=== PATIENT | male | born 1955 | race Caucasian/White ===

== ENCOUNTER 2023-10-10 11:03 | Emergency (ER) | payer MEDICARE, MEDICAID, SELFPAY ==
[2023-10-10] VITALS (29 sets, daily range): BP systolic 134–167; BP diastolic 74–92; PULSE 57–82; RESP 10–30; TEMP 36.9; O2SAT 96–100
--- NOTE | ~2023-10-10 | XR_ITS ---
Clinical Indication: Chest pain AP and lateral views of the chest: Comparison: None Findings: The lungs are clear, without evidence of focal consolidation or pleural effusion. Cardiome diastinal silhouette is within normal limits. Bones and soft tissues are unremarkable. Impression: Normal chest. Reviewed, dictated and finalized at location . T DEPUTY Impression: Normal chest.
--- NOTE | ~2023-10-10 | CT_ITS ---
EXAMINATION: CTA chest PE protocol DATE: 10/10/2023 15:34 INDICATION: Pleuritic chest pain. TECHNIQUE: Computed tomography angiography (CTA) of the chest was performed with 100 mL Omnipaque-350 intravenous contrast timed to evaluate the pulmonary arteries. Coronal maximum intensity projection 3D-reconstructions were created by the technologist. Automated exposure control and iterative reconst ruction technique were employed. The dose-length product was 444.39 mGy-cm. COMPARISON: Chest 2 views 10/10/2023 FINDINGS: There is mild scarring at the lung apices. There is a 4 mm nodule in right middle lobe, lik fab benign. There is mild atelectasis in the lungs. Calcified left left lung nodules and calcified le ft hilar and mediastinal lymph nodes are consistent with old granulomatous disease. No pleural effusi on. The heart size is normal. No pericardial effusion. Calcifications in the liver and spleen are con sistent with old granulomatous disease. There is wall thickening in the distal esophagus, consistent with esophagitis. There are bridging endplate osteophytes at multiple levels in the spine, consistent with diffuse idiopathic skeletal hyperostosis (DISH). IMPRESSION: 1. No pulmonary embolus. 2. Wall thickening of the distal esophagus, consistent with esophagitis. Reviewed, dictated and finalized at location E. C INTERN
--- NOTE | 2023-10-10 11:16 | ECG_ITS ---
Measurements Intervals [place] Rate: 69 P: 70 MI: 185 QRS: 27 QRSD: 110 T: 50 QT: 429 QTc: 462 Interpretive Statements SINUS RHYTHM BASELINE ARTIFACT POSSIBLE LEFT ATRIAL ENLARGEMENT [-0.1mV P WAVE IN V1/V2] NONSPECIFIC T-WAVE ABNORMALITY BORDERLINE ECG NO PREVIOUS ECG AVAILABLE FOR COMPARISON Electronically Signed On 10-10-2023 16:00:09 BUTTON SAWYER by Jose Felix M.D.
[2023-10-10 11:29] LABS: Basophils Percent Auto 0.4 % (0.2-1.2); Eosinophils Absolute Auto 0.2 K/mm3 (0-0.3); Eosinophils Percent Auto 1.5 % (0-4.4); Hematocrit 44.9 % (42.0-52.0); Hemoglobin 15.1 g/dL (14.0-18.0); Immature Granulocyte Absolute 0.04 K/mm3 (0.00-0.031); Immature Granulocyte Percent A 0.4 % (0-0.5); Lymphocytes Absolute Auto 3.63 K/mm3 (0.9-3.2); Lymphocytes Percent Auto 33.6 % (18.3-44.2); Mean Corpuscular HGB Conc 33.6 g/dl (32-36); Mean Corpuscular Hemoglobin 31.3 pg (26-34); Mean Corpuscular Volume 93.2 fl (80-100); Mean Platelet Volume 9.8 fl (7.4-10.4); Monocytes Percent Auto 8.9 % (2.6-8.5); Neutrophils Percent Auto 55.2 % (45.5-73.1); Platelet Count Result 150 k/mm3 (150-375); Red Blood Count 4.82 M/mm3 (4.6-6.20); Red Cell Distribution Width 12.4 % (11.5-14.5); White Blood Count 10.8 K/mm3 (4.5-10.0)
[2023-10-10 11:41] LABS: Alanine Aminotransferase 17 U/L (6-50); Albumin Level 4.6 g/dL (3.5-5.1); Alkaline Phosphatase 60 U/L (38-126); Anion Gap 9 mmol/L (8-16); Aspartate Amino Transferase 27 U/L (17-59); Bilirubin,Total 1.1 mg/dL (0.2-1.3); Blood Urea Nitrogen 14 mg/dL (9-20); Calcium 9.4 mg/dL (8.4-10.2); Carbon Dioxide 26 mmol/L (22-30); Chloride 105 mmol/L (98-107); Estimated CRCL calculation 52 ml/min; Estimated Glomerular Filt Rate 60; Glucose 183 mg/dL (65-110); Lipase 159 U/L (23-300); Potassium 3.7 mmol/L (3.4-5.0); Sodium 140 mmol/L (137-145)
[2023-10-10 11:53] LABS: Troponin I < 0.012 ng/mL (0.000-0.034)
[2023-10-10 12:36] LABS: INR 0.9; Prothrombin Time 12.9 Seconds (11.1-14.7)
[2023-10-10 12:37] LABS: Partial Thromboplastin Time 27.4 SECONDS (22.3-36.8)
[2023-10-10 12:41] LABS: D Dimer 0.53 ug/mL (<0.48)
--- NOTE | 2023-10-10 13:10 | ED.CHESTPAIN ---
HPI - Chest Pain General Chief Complaint: Chest Pain Stated Complaint: CP Time Seen by Provider: 10/10/23 11:19 Source: patient Mode of arrival: EMS Limitations: no limitations History of Present Illness HPI narrative: 68 yo with Hx PR (2012), open heart surgery/CABG (2012), diabetes and HIV who presents with left sided chest pain occuring since 08:30. He is s/p 324mg aspirin and 1 Nitro from EMS. Pain is sharp, radiating to left neck and left arm. Described as pleuritic. No lower extremity edema. The pain has improved. It awoke him from sleep. Not on insulin or diabetic medication; controlled with diet and exercise and has had near normal HA1C as a result of lifestyle modifications. Recnetly moved here from [facility] months ago. Established with PCP Kirby yesterday but has not yet established with a naturopath. Compliant with his 2 ARVs though can't recall name. No cough, fevers. Related Data Home Medications Medication Instructions Recorded Confirmed aspirin 81 mg tablet,delayed 81 mg PO DAILY 10/09/23 10/09/23 release (Adult Aspirin Regimen) dolutegravir 50 mg tablet (Tivicay) 50 mg PO .COMPLEX 10/09/23 10/09/23 empagliflozin 10 mg tablet 10 mg PO DAILY 10/09/23 10/09/23 (Jardiance) emtricitabine 200 mg-tenofovir 1 tablet PO DAILY 10/09/23 10/09/23 alafenamide fumarate 25 mg tablet (Descovy) ezetimibe 10 mg tablet 10 mg PO DAILY 10/09/23 10/09/23 famotidine 20 mg tablet 20 mg PO QHS 10/09/23 10/09/23 isosorbide mononitrate 60 mg 60 mg PO DAILY 10/09/23 10/09/23 tablet,extended release 24 hr levocetirizine 5 mg tablet 5 mg PO QPM 10/09/23 10/09/23 lisinopril 20 mg tablet 20 mg PO DAILY 10/09/23 10/09/23 mecobalamin (vitamin B12) 1,000 1,000 mcg PO DAILY 10/09/23 10/09/23 mcg chewable tablet metoprolol tartrate 25 mg tablet 25 mg PO BID 10/09/23 10/09/23 multivitamin (Daily-Beverly tablet) 1 tablet PO DAILY 10/09/23 10/09/23 oxycodone 7.5 mg tablet,oral ONLY 7.5 mg PO TID PRN 10/09/23 10/09/23 (not for feeding tubes) rosuvastatin 40 mg tablet 40 mg PO DAILY 10/09/23 10/09/23 venlafaxine 150 mg 150 mg PO DAILY 10/09/23 10/09/23 capsule,extended release 24 hr Allergies Allergy/AdvReac Type Severity Reaction Status Date / Time Penicillins Allergy Intermediate Hives Verified 10/10/23 11:09 strawberry Allergy Intermediate Hives Verified 10/10/23 11:09 Sulfa (Sulfonamide Allergy Intermediate Hives Verified 10/10/23 11:09 Antibiotics) [facility] Past Medical History Medical History Acid reflux disease with ulcer Anxiety CHF (congestive heart failure) Chronic low back pain with sciatica Coronary artery disease Diabetes type 2, controlled Esophageal dilatation GERD (gastroesophageal reflux disease) Heart attack HIV (human immunodeficiency virus infection) HLD (hyperlipidemia) Major depressive disorder in partial remission Surgical History Surgical History (Updated 10/12/23 @ 06:06 by Mily Genao MD) History 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 (unable to do all 3 ) History of prostate surgery Hx of cataract removal with insertion of prosthetic lens Family History Family History (Updated 10/09/23 @ 09:26 by Karma Richter CMA) Father Alcoholism Breast cancer Diabetes mellitus Hypertension Depression Anxiety Heart problem Mother Diabetes mellitus Hypertension Cerebrovascular accident Sibling Breast cancer Diabetes mellitus Hypertension Depression Anxiety Heart problem Cerebrovascular accident Social History Social History (Updated 10/09/23 @ 09:28 by Karma Richter CMA) Smoking status: Never smoker Second hand tobacco smoke exposure: No Alcohol intake: never Substance use: never Do You Feel Safe in your Home?: Yes Lack of Transportation: No Lack of Food: Sometimes True Current Housing: I Have Housing Concerned About Future Housing: No Di
[2023-10-10] MEDS: HYDROcodone/acetaminophen (*CRX) 5-325 MG TABLET 1 TAB PO (14:02)
--- NOTE | 2023-10-10 14:16 | ECG_ITS ---
Measurements Intervals [place] Rate: 55 P: 31 [place]: 193 QRS: 18 QRSD: 108 T: 31 QT: 451 QTc: 435 Interpretive Statements SINUS BRADYCARDIA NONSPECIFIC T-WAVE ABNORMALITY BORDERLINE ECG COMPARED TO ECG 10/10/2023 11:08:29 HEART RATE HAS DECREASED Electronically Signed On 10-10-2023 16:06:23 GASTROENTEROLOGIST by Jose Felix M.D.
[2023-10-10 14:42] LABS: Troponin I < 0.012 ng/mL (0.000-0.034)
== END 2023-10-10 16:38 | disposition home or self-care (01) ==
PROVIDERS: Emergency Provider Student in an Organized Health Care Education/Training Program; PCP Internal Medicine
DX: K20.90 Esophagitis, unspecified without bleeding (principal); R07.89 Other chest pain; I25.2 Old myocardial infarction; Z21 Asymptomatic human immunodeficiency virus [HIV] infection status; I50.9 Heart failure, unspecified; I25.10 Atherosclerotic heart disease of native coronary artery without angina pectoris; E11.9 Type 2 diabetes mellitus without complications; E78.5 Hyperlipidemia, unspecified; K21.9 Gastro-esophageal reflux disease without esophagitis; Z95.1 Presence of aortocoronary bypass graft; Z98.49 Cataract extraction status, unspecified eye; Z96.1 Presence of intraocular lens; Z79.84 Long term (current) use of oral hypoglycemic drugs; Z79.82 Long term (current) use of aspirin; Z79.899 Other long term (current) drug therapy; R94.31 Abnormal electrocardiogram [ECG] [EKG]; R00.1 Bradycardia, unspecified
CPT/HCPCS: 36415; 71046; 71275; 80053; 83690; 84484; 85025; 85380; 85610; 85730; 93005; 99284; A9270; Q9967

== ENCOUNTER 2023-11-15 12:30 | Outpatient (RCR) | payer MEDICARE, MEDICAID, SELFPAY ==
--- NOTE | 2023-10-30 10:32 | OPREHPOC ---
Outpatient Therapy Plan of Care This is a Multidisciplinary Plan of Care that may contain components documented by all disciplines (PT, OT, and ST.) PT Problem 1 PT Problem #1 Knowledge Deficit PT Goal 1 Goal 1* indep with HEP 2* correct body mechanics and positioning with exercises PT Problem 2 PT Problem #2 Pain PT Goal 1 Goal 1* pain rating at worst of 6/10 2* pt report with sleeping, awaken due to pain 1x/ night 3* self assessment Oswestry score of 44% limitation in activity level PT Problem 3 PT Problem #3 Impaired Flexibility PT Goal 1 Goal improve flexibility over hip musculature, to decrease pull on spine and hips: hamstring length with supine SLR 1* R 50' 2* L 50' no pain reported with motion x2 reps: 3* supine L piriformis stretch 4* supine trunk rotation with LE to R PT Problem 4 PT Problem #4 Impaired Strength PT Goal 1 Goal improve strength and mobility skills, to increase activity tolerance: 1* 5 reps sit/stand time of 19 seconds 2* 2 minute walk test 300' 3* pt perform 20 reps of R and L LE mat exercises
--- NOTE | 2023-10-30 10:32 | PTOPEVAL1 ---
Assessment and note entered by Debbie Begum, PT Evaluation Information Assessment Status Evaluation Diagnosis lumbar pain, other chronic pain Onset several years Subjective Information chronic issues with pain; go to pain management, last back injection about 6 months ago; had PT in the past about 3 yr ago, helped some after received injections; have not had any falls in the past 6 months, but have had the feeling like going to fall; in the morning, have problems with dizziness and with sit to stand up--have to stay still and get bearings before moving; ACTIVITY: have help with home cleaning, home chores, make bed- helper 2x/wk for few hours indep with bathing, dressing tasks- have hard time bending over for shoes/socks; limited community outings, stay home most time; Reported Pain Level Pain Score Self Report Additional Pain Score Comments pain range of 5-9/10 in the past week; R and L lumbar- irritating pain, frustrating pain; decrease pain: lie flat in bed; oxycodone 2-3x/ day increase pain: when wake up in AM, towards end of day, after bathing and dressing; have not used heat/ice for pain, instruct on PRN use pain awakens him from sleeping 3x/night self assessment Oswestry self assessment 54% limitation in activity level Assessment PT Clinical Summary Jesus Manuel has the diagnosis of lumbar pain and other chronic pain. He reports chronic issues with back pain and under the care of pain management. Sleeping is disrupted due to pain, awakening him 3x/night. Self assessment Oswestry score of 54% limitation. He has home helper for home tasks. With the evaluation: he has flat spine posture over thoracic and lumbar areas, pain is increased with standing trunk extension > flexion motion, L piriformis stretch and supine trunk rotation with legs to R; 2 minute walk test distance of 200'; 5 reps sit/stand time of 26 seconds; Skilled PT services are indicated for modalities to decrease pain, therape
--- NOTE | 2023-11-19 15:11 | PTOPDC ---
Assessment and note entered by Debbie Begum, PT Evaluation Information Assessment Status Discharge - Pt Not Present Diagnosis lumbar pain, other chronic pain Onset several years Assessment PT Clinical Summary Mr. Singh has received 5 PT sessions. He called today, left a message to cancel his remaining PT appointments, due to his back hurting more and going to get injections. Discharge PT per pt request. The goals were not assessed. Plan of Care PT Services Indicated No
== END 2023-11-19 15:40 | disposition home or self-care (01) ==
LOC: ANHPT 12:30
PROVIDERS: PCP Internal Medicine; Visit Provider Internal Medicine
DX: M54.40 Lumbago with sciatica, unspecified side (principal); G89.29 Other chronic pain
CPT/HCPCS: 97014; 97110; 97161; 97530; G0283

== ENCOUNTER 2024-01-29 00:17 | Day surgery (SDC) | payer MEDICARE, MEDICAID, SELFPAY ==
[2024-01-15 09:09] VITALS: BMI 28.1
[2024-01-29 08:14] VITALS: BP 164/78; PULSE 63; RESP 16; TEMP 36.4; O2SAT 98
[2024-01-29] MEDS: LACTATED RINGERS 1,000 ML 150 ML IV CONT (08:22)
[2024-01-29 08:26] LABS: Glucose Point of Care 189 mg/dl (65-105)
--- NOTE | 2024-01-29 08:45 | WPDANESEPPF ---
Anes - Initial Pre Proc Eval Procedure: Operation Date: 01/29/24 09:05 Proposed Procedures p Esophagogastroduodenoscopy - Romel De Leon MD Operation Date: 01/29/24 09:30 Proposed Procedures p Esophagogastroduodenoscopy - Romel De Leon MD Date/Time: 01/29/24 08:45 Surgeon: Romel De Leon MD Pre Op Diagnosis: Dysphagia,unspecified Patient Data Age: 68 Gender: M Height: 1.75 m Weight: 86.9 kg Last Vital Signs Temp 97.5 F L 01/29/24 08:14 Pulse 63 01/29/24 08:14 Resp 16 01/29/24 08:14 BP 164/78 H 01/29/24 08:14 Pulse Ox 98 01/29/24 08:14 O2 Del Method Room Air 01/29/24 08:14 Allergies Allergy/AdvReac Type Severity Reaction Status Date / Time Penicillins Allergy Intermediate Hives Verified 01/29/24 08:13 strawberry Allergy Intermediate Hives Verified 01/29/24 08:13 Sulfa (Sulfonamide Allergy Intermediate Hives Verified 01/29/24 08:13 Antibiotics) Home Medications Medication Instructions Recorded Confirmed Type aspirin 81 mg tablet,delayed 81 mg PO DAILY 10/09/23 01/15/24 History release (Adult Aspirin Regimen) dolutegravir 50 mg tablet (Tivicay) 50 mg PO .COMPLEX 10/09/23 01/15/24 History emtricitabine 200 mg-tenofovir 1 tablet PO DAILY 10/09/23 01/15/24 History alafenamide fumarate 25 mg tablet (Descovy) ezetimibe 10 mg tablet 10 mg PO DAILY 10/09/23 01/15/24 History famotidine 20 mg tablet 20 mg PO QHS 10/09/23 01/15/24 History isosorbide mononitrate 60 mg 60 mg PO DAILY 10/09/23 01/15/24 History tablet,extended release 24 hr levocetirizine 5 mg tablet 5 mg PO QPM 10/09/23 01/15/24 History lisinopril 20 mg tablet 20 mg PO DAILY 10/09/23 01/15/24 History mecobalamin (vitamin B12) 1,000 1,000 mcg PO DAILY 10/09/23 01/15/24 History mcg chewable tablet metoprolol tartrate 25 mg tablet 25 mg PO BID 10/09/23 01/15/24 History multivitamin (Daily-Beverly tablet) 1 tablet PO DAILY 10/09/23 01/15/24 History oxycodone 7.5 mg tablet,oral ONLY 7.5 mg PO TID PRN Pain, Mild 10/09/23 01/15/24 History (not for feeding tubes) rosuvastatin 40 mg tablet 40 mg PO DAILY 10/09/23 01/15/24 History venlafaxine 150 mg 150 mg PO DAILY 10/09/23 01/15/24 History capsule,extended release 24 hr fluconazole 200 mg tablet 200 mg PO DAILY #10 tabs 10/10/23 01/15/24 Rx empagliflozin 25 mg tablet 25 mg PO DAILY 11/12/23 01/15/24 History (Jardiance) omeprazole 40 mg capsule,delayed 40 mg PO DAILY #30 caps 12/10/23 01/15/24 Rx release Laboratory Tests 01/29/24 08:11 POC Capillary Glucose 189 H mg/dl (65-105) Patient hx anesthesia problems: none Family hx anesthesia problems: none Results Review: All pre-operative results and documents have been reviewed as part of the pre-operative evaluation. [facility] Past Medical History Medical History Acid reflux disease with ulcer Anxiety CHF (congestive heart failure) Chronic low back pain with sciatica Coronary artery disease Diabetes type 2, controlled Esophageal dilatation GERD (gastroesophageal reflux disease) Heart attack HIV (human immunodeficiency virus infection) HLD (hyperlipidemia) Major depressive disorder in partial remission Surgical History Surgical History History 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 (unable to do all 3 ) History of prostate surgery Hx of cataract removal with insertion of prosthetic lens Family History Family History Father Alcoholism Breast cancer Diabetes mellitus Hypertension Depression Anxiety Heart problem Mother Diabetes mellitus Hypertension Cerebrovascular accident Sibling Breast cancer Diabetes mellitus Hypertension Depression Anxiety Heart problem Cerebrovascular accident Social History Social History (Review
--- NOTE | 2024-01-29 09:01 | PM.HPGS ---
History of Present Illness History of Present Illness Consent: Risks, benefits, and alternatives have been discussed and questions answered. Patient agrees to proceed with procedure. Chief complaint: Dysphagia,unspecified Narrative: Zaheer Singh is a 68 year old male with accumulation of saliva then difficulty swallowing, h/o HIV controlled, had esophageal dilation in the past but did not help Review of Systems Review of Systems: All systems reviewed & are unremarkable except as noted in HPI and below PMFSH Past Medical History Medical History Acid reflux disease with ulcer Anxiety CHF (congestive heart failure) Chronic low back pain with sciatica Coronary artery disease Diabetes type 2, controlled Esophageal dilatation GERD (gastroesophageal reflux disease) Heart attack HIV (human immunodeficiency virus infection) HLD (hyperlipidemia) Major depressive disorder in partial remission Surgical History Surgical History History 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 (unable to do all 3 ) History of prostate surgery Hx of cataract removal with insertion of prosthetic lens Family History Family History Father Alcoholism Breast cancer Diabetes mellitus Hypertension Depression Anxiety Heart problem Mother Diabetes mellitus Hypertension Cerebrovascular accident Sibling Breast cancer Diabetes mellitus Hypertension Depression Anxiety Heart problem Cerebrovascular accident Social History Social History Smoking status: Never smoker Second hand tobacco smoke exposure: No Alcohol intake: never Substance use: never Substance use type: does not use Do You Feel Safe in your Home?: Yes Lack of Transportation: No Lack of Food: Sometimes True Current Housing: I Have Housing Concerned About Future Housing: No Difficulty Paying Gas/Electric Bills: No Difficulty Paying for Meds: No Currently Unemployed: No Education: Associate Degree Difficulty w/ Childcare or Family Care: No Living arrangements: alone 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 Gender identity (if verbalized by the patient): Male Spiritual care concerns: No Agree to blood products: Yes Meds Home Medications and Allergies Home Medications Medication Instructions Recorded Confirmed Type aspirin 81 mg tablet,delayed 81 mg PO DAILY 10/09/23 01/15/24 History release (Adult Aspirin Regimen) dolutegravir 50 mg tablet (Tivicay) 50 mg PO .COMPLEX 10/09/23 01/15/24 History emtricitabine 200 mg-tenofovir 1 tablet PO DAILY 10/09/23 01/15/24 History alafenamide fumarate 25 mg tablet (Descovy) ezetimibe 10 mg tablet 10 mg PO DAILY 10/09/23 01/15/24 History famotidine 20 mg tablet 20 mg PO QHS 10/09/23 01/15/24 History isosorbide mononitrate 60 mg 60 mg PO DAILY 10/09/23 01/15/24 History tablet,extended release 24 hr levocetirizine 5 mg tablet 5 mg PO QPM 10/09/23 01/15/24 History lisinopril 20 mg tablet 20 mg PO DAILY 10/09/23 01/15/24 History mecobalamin (vitamin B12) 1,000 1,000 mcg PO DAILY 10/09/23 01/15/24 History mcg chewable tablet metoprolol tartrate 25 mg tablet 25 mg PO BID 10/09/23 01/15/24 History multivitamin (Daily-Beverly tablet) 1 tablet PO DAILY 10/09/23 01/15/24 History oxycodone 7.5 mg tablet,oral ONLY 7.5 mg PO TID PRN Pain, Mild 10/09/23 01/15/24 History (not for feeding tubes) rosuvastatin 40 mg tablet 40 mg PO DAILY 10/09/23 01/15/24 History venlafaxine 150 mg 150 mg PO DAILY 10/09/23 01/15/24 History capsule,extended release 24 hr fluconazole 200 mg tablet 200 mg PO DAILY #10 tabs 10/10/23 01/15/24 Rx empagliflozin 25 mg tablet 25 mg PO DAILY 11/12/23 01/15/24 History ([place]
[2024-01-29 09:14] VITALS: BP 136/74; PULSE 52; RESP 17; O2SAT 97
[2024-01-29 09:24] VITALS: BP 131/92; PULSE 58; RESP 15; O2SAT 97
[2024-01-29 09:34] VITALS: BP 125/89; PULSE 57; RESP 15; O2SAT 98
== END 2024-01-29 09:42 | disposition home or self-care (01) ==
PROVIDERS: PCP Internal Medicine; Visit Provider Internal Medicine Gastroenterology
PROC: 0DJ08ZZ Inspection of Upper Intestinal Tract, Via Natural or Artificial Opening Endoscopic (ICD-10-PCS; CPT 43235; principal; 2024-01-29 09:30)
DX: K29.50 Unspecified chronic gastritis without bleeding (principal); E11.43 Type 2 diabetes mellitus with diabetic autonomic (poly)neuropathy; K31.84 Gastroparesis; K21.00 Gastro-esophageal reflux disease with esophagitis, without bleeding; I50.9 Heart failure, unspecified; I25.2 Old myocardial infarction; E78.5 Hyperlipidemia, unspecified; I25.10 Atherosclerotic heart disease of native coronary artery without angina pectoris; F41.9 Anxiety disorder, unspecified; F32.4 Major depressive disorder, single episode, in partial remission; Z21 Asymptomatic human immunodeficiency virus [HIV] infection status; Z79.899 Other long term (current) drug therapy; Z95.1 Presence of aortocoronary bypass graft; Z79.82 Long term (current) use of aspirin; Z79.84 Long term (current) use of oral hypoglycemic drugs; Z79.891 Long term (current) use of opiate analgesic
CPT/HCPCS: 43239; 82948; 88305; 88342; J2704; J7120

== ENCOUNTER 2024-02-04 08:03 | Outpatient (CLI) | payer MEDICARE, MEDICAID, SELFPAY ==
--- NOTE | ~2024-02-04 | NM_ITS ---
EXAM: NM gastric emptying study DATE: 02/04/2024 13:35 CDT INDICATION: Type 2 diabetes with hyperglycemia TECHNIQUE: A gastric emptying study was performed using the methodology of Shine SANCHEZ, et al. J Nucl Med 2007; 48:568-572. The patient was given a meal consisting of 2 scrambled eggs labeled with 1 mCi Tc-99m sulfur colloid, 2 slices of toast, two packages of jam, and approximately 120 mL of water. Si multaneous anterior and posterior 1-min images of the abdomen were obtained with the patient supine a t multiple time points over a total period of 4 hours. The geometric mean of anterior and posterior v iews was determined, and the percentage retention was calculated for each time point. COMPARISON: None. FINDINGS: Gastric retention of the radiotracer-labeled meal was 46%, 32%, and 3% at the 1-hour, 2-ho ur, and 4-hour time points, respectively. With this technique, apparent rapid gastric emptying is sug gested by <30% gastric retention at 1 hour. Delayed gastric emptying is defined by gastric retention of >90% at 1 hour, >60% retention at 2 hours, or >10% retention at 4 hours. IMPRESSION: 1. Normal gastric emptying. Reviewed, dictated and finalized at location B. IMPRESSION: 1. Normal gastric emptying.
== END 2024-02-04 08:04 | disposition home or self-care (01) ==
LOC: ANHIMG 08:06
PROVIDERS: PCP Internal Medicine; Visit Provider Internal Medicine Gastroenterology
DX: E11.65 Type 2 diabetes mellitus with hyperglycemia (principal); R13.10 Dysphagia, unspecified; K21.9 Gastro-esophageal reflux disease without esophagitis
CPT/HCPCS: 78264; A9541

== ENCOUNTER 2024-05-19 15:12 | Emergency (ER) | payer MEDICARE, MEDICAID, SELFPAY ==
--- NOTE | ~2024-05-19 | CT_ITS ---
EXAMINATION: CT abdomen pelvis wo con DATE: 05/19/2024 15:58 INDICATION: Nephrolithiasis with right flank pain TECHNIQUE: Computed tomography (CT) of the abdomen and pelvis was performed without intravenous contr ast. Automated exposure control and iterative reconstruction technique were employed. The dose-length product was 644.69 mGy-cm. COMPARISON: Chest CT dated 10/10/2023 FINDINGS: A few calcified and unchanged noncalcified small granuloma at the bilateral lung bases. Heart size is normal. Atherosclerotic coronary artery calcification. Median sternotomy wire. No pericardial or ple ural effusion. Small sliding-type hiatal hernia versus prominent distal esophageal wall thickening. A lso consistent with old granulomatous disease are multiple scattered hepatic and splenic calcific les ions. Cholecystectomy clips the gallbladder fossa. Pancreas and bilateral adrenal glands are normal. A couple left renal cysts measuring up to 2.2 cm. 5 mm nonobstructing stone at the mid right kidney. No other urolithiasis in either kidney or ureter. No hydronephrosis. Bladder is normal. Small fat-con taining bilateral inguinal hernias. There are few scattered colonic diverticula without adjacent comp arison to suggest diverticular colitis. Small bowel and appendix are normal. No free intraperitoneal gas or fluid. No pathologically enlarged abdominal or pelvic lymphadenopathy. Mild lumbar and lower t horacic spondylosis. IMPRESSION: 1. 5 mm nonobstructing right renal stone. No ureteral stones or hydronephrosis. 2. Small sliding-type hiatal hernia versus prominent wall thickening in the distal esophagus which ca n be seen with esophagitis. Reviewed, dictated and finalized at location A. IMPRESSION: 1. 5 mm nonobstructing right renal stone. No ureteral stones or hydronephrosis. 2. Small sliding-type hiatal hernia versus prominent wall thickening in the dis ria esophagus which can be seen with esophagitis.
[2024-05-19 15:07] VITALS: BP 183/91; PULSE 60; RESP 16; TEMP 36.8; O2SAT 96
--- NOTE | 2024-05-19 16:09 | ED.GENADULT ---
HPI - General Adult General Chief complaint: Back Pain/Injury Stated complaint: flank pain Time Seen by Provider: 05/19/24 15:16 History of Present Illness HPI narrative: This is a 68-year-old male with history of chronic pain, HIV and sciatica presenting with lower back pain. Patient has pain in his right lower back. It is sharp, nonradiating, worse with movement. He has been taking his home dose of oxycodone with no relief. He denies any lower extremity weakness, bowel incontinence urinary retention saddle anesthesia. No history of cancer or recent IV drug abuse. No fevers. Patient is very tearful during the interview and begins crying. He states this is because of his anxiety Related Data Home Medications Medication Instructions Recorded Confirmed aspirin 81 mg tablet,delayed 81 mg PO DAILY 10/09/23 02/11/24 release (Adult Aspirin Regimen) dolutegravir 50 mg tablet (Tivicay) 50 mg PO .COMPLEX 10/09/23 02/11/24 emtricitabine 200 mg-tenofovir 1 tablet PO DAILY 10/09/23 02/11/24 alafenamide fumarate 25 mg tablet (Descovy) ezetimibe 10 mg tablet 10 mg PO DAILY 10/09/23 02/11/24 famotidine 20 mg tablet 20 mg PO QHS 10/09/23 01/15/24 isosorbide mononitrate 60 mg 60 mg PO DAILY 10/09/23 02/11/24 tablet,extended release 24 hr lisinopril 20 mg tablet 20 mg PO DAILY 10/09/23 02/11/24 mecobalamin (vitamin B12) 1,000 1,000 mcg PO DAILY 10/09/23 02/11/24 mcg chewable tablet metoprolol tartrate 25 mg tablet 25 mg PO BID 10/09/23 02/11/24 multivitamin (Daily-Beverly tablet) 1 tablet PO DAILY 10/09/23 02/11/24 rosuvastatin 40 mg tablet 40 mg PO DAILY 10/09/23 02/11/24 venlafaxine 150 mg 150 mg PO DAILY 10/09/23 02/11/24 capsule,extended release 24 hr empagliflozin 25 mg tablet 25 mg PO DAILY 11/12/23 02/11/24 (Jardiance) ergocalciferol (vitamin D2) 50,000 unit PO 02/06/24 02/11/24 unit tablet Allergies Allergy/AdvReac Type Severity Reaction Status Date / Time Penicillins Allergy Intermediate Hives Verified 05/19/24 16:22 strawberry Allergy Intermediate Hives Verified 05/19/24 16:22 Sulfa (Sulfonamide Allergy Intermediate Hives Verified 05/19/24 16:22 Antibiotics) [facility] Past Medical History Medical History Acid reflux disease with ulcer Anxiety CHF (congestive heart failure) Chronic low back pain with sciatica Coronary artery disease Diabetes type 2, controlled Esophageal dilatation GERD (gastroesophageal reflux disease) Heart attack HIV (human immunodeficiency virus infection) HLD (hyperlipidemia) Major depressive disorder in partial remission Surgical History Surgical History History 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 (unable to do all 3 ) History of prostate surgery Hx of cataract removal with insertion of prosthetic lens Family History Family History Father Alcoholism Breast cancer Diabetes mellitus Hypertension Depression Anxiety Heart problem Mother Diabetes mellitus Hypertension Cerebrovascular accident Sibling Breast cancer Diabetes mellitus Hypertension Depression Anxiety Heart problem Cerebrovascular accident Social History Social History Smoking status: Never smoker Second hand tobacco smoke exposure: No Alcohol intake: never Substance use: never Substance use type: does not use Do You Feel Safe in your Home?: Yes Lack of Transportation: No Lack of Food: Sometimes True Current Housing: I Have Housing Concerned About Future Housing: No Difficulty Paying Gas/Electric Bills: No Difficulty Paying for Meds: No Currently Unemployed: No Education: Associate Degree Difficulty w/ Childcare or Family Care: No Living arrangements: alone Occupation/Education: retired Additional occupation/ed
[2024-05-19 16:21] VITALS: BP 165/80; PULSE 62; RESP 17; O2SAT 99
[2024-05-19] MEDS: ACETAMINOPHEN 500 MG TABLET 1000 MG PO (16:30)
[2024-05-19] MEDS: HYDROmorphone HCL INJ (*CRX) 1 MG/ML SYR 0.5 MG IV PUSH (16:30)
[2024-05-19] MEDS: methocarbamoL 750 MG TABLET 1500 MG PO (16:30)
[2024-05-19 16:46] LABS: Basophils Percent Auto 0.4 % (0.2-1.2); Eosinophils Absolute Auto 0.1 K/mm3 (0-0.3); Eosinophils Percent Auto 1.2 % (0-4.4); Hematocrit 41.9 % (42.0-52.0); Hemoglobin 14.6 g/dL (14.0-18.0); Immature Granulocyte Absolute 0.02 K/mm3 (0.00-0.031); Immature Granulocyte Percent A 0.2 % (0-0.5); Lymphocytes Absolute Auto 3.84 K/mm3 (0.9-3.2); Lymphocytes Percent Auto 45.8 % (18.3-44.2); Mean Corpuscular HGB Conc 34.8 g/dl (32-36); Mean Corpuscular Hemoglobin 32.6 pg (26-34); Mean Corpuscular Volume 93.5 fl (80-100); Monocytes Absolute Auto 0.8 K/mm3 (0.1-0.6); Monocytes Percent Auto 9.5 % (2.6-8.5); Neutrophils Absolute Auto 3.6 K/mm3 (1.3-6.7); Neutrophils Percent Auto 42.9 % (45.5-73.1); Platelet Count Result 147 k/mm3 (150-375); Red Blood Count 4.48 M/mm3 (4.6-6.20); Red Cell Distribution Width 12.3 % (11.5-14.5); White Blood Count 8.4 K/mm3 (4.5-10.0)
[2024-05-19 16:52] LABS: Appearance Urine Clear (Clear); Bilirubin Urine Negative (Negative); Blood Urine Negative (Negative); Color Urine Yellow (Yellow); Glucose Urine UA 3+ mg/dL (Negative); Ketones Urine Negative (Negative); Leukocyte Esterase Ur Negative LEU/UL (Negative); Nitrate Urine Negative (Negative); Protein Urine Negative (Negative); Specific Grav Ur 1.032 (1.001-1.035)
[2024-05-19 16:58] LABS: Alanine Aminotransferase 22 U/L (6-50); Albumin Level 4.5 g/dL (3.5-5.1); Alkaline Phosphatase 44 U/L (38-126); Anion Gap 7 mmol/L (4-12); Aspartate Amino Transferase 40 U/L (17-59); Bilirubin,Total 0.7 mg/dL (0.2-1.3); Blood Urea Nitrogen 16 mg/dL (9-20); Calcium 9.5 mg/dL (8.4-10.2); Carbon Dioxide 29 mmol/L (22-30); Chloride 104 mmol/L (98-107); Estimated CRCL calculation 48 ml/min; Estimated Glomerular Filt Rate 55; Glucose 137 mg/dL (65-110); Sodium 140 mmol/L (137-145)
[2024-05-19 17:03] LABS: Add Urine Microscopic? NO
[2024-05-19 17:55] VITALS: BP 155/86; PULSE 62; RESP 17; O2SAT 97
== END 2024-05-19 17:55 | disposition home or self-care (01) ==
PROVIDERS: Emergency Provider Emergency Medicine; PCP Internal Medicine
DX: M54.50 Low back pain, unspecified (principal); G89.29 Other chronic pain; I50.9 Heart failure, unspecified; I25.2 Old myocardial infarction; I25.10 Atherosclerotic heart disease of native coronary artery without angina pectoris; E11.9 Type 2 diabetes mellitus without complications; E78.5 Hyperlipidemia, unspecified; K21.9 Gastro-esophageal reflux disease without esophagitis; K22.10 Ulcer of esophagus without bleeding; Z21 Asymptomatic human immunodeficiency virus [HIV] infection status; F32.4 Major depressive disorder, single episode, in partial remission; F41.9 Anxiety disorder, unspecified; Z96.1 Presence of intraocular lens; Z98.49 Cataract extraction status, unspecified eye; Z79.899 Other long term (current) drug therapy; Z79.82 Long term (current) use of aspirin; Z79.84 Long term (current) use of oral hypoglycemic drugs; K44.9 Diaphragmatic hernia without obstruction or gangrene; N20.0 Calculus of kidney
CPT/HCPCS: 36415; 74176; 80053; 81003; 85025; 96374; 99284; A9270; J1170